=== PATIENT | female | born 1930 | race African-American/Black ===

== ENCOUNTER 2019-03-04 10:35 | Inpatient (IN) | payer MEDICARE ==
[2019-03-04 12:24] LABS: ABSOLUTE LYMPHOCYTES (AUTO) 0.9 10^3/uL (0.5-4.7); ABSOLUTE MONOCYTES (AUTO) 0.4 10^3/uL (0.1-1.4); ABSOLUTE NEUT (AUTO) 4.1 10^3/uL (1.7-8.2); BASOPHILS % (AUTO) 0.5 % (0-2); EOSINOPHILS % (AUTO) 0.4 % (0-6); HEMATOCRIT 44.9 % (36.0-47.0); HEMOGLOBIN 14.9 g/dL (12.0-15.5); LYMPHOCYTES % (AUTO) 17.2 % (13-45); MEAN CORPUSCULAR HEMOGLOBIN 29.3 pg (27.0-33.4); MEAN CORPUSCULAR HGB CONC 33.2 g/dL (32.0-36.0); MEAN CORPUSCULAR VOLUME 88 fl (80-97); MONOCYTES % (AUTO) 7.2 % (3-13); PLATELET COUNT 165 10^3/uL (150-450); RED BLOOD COUNT 5.09 10^6/uL (3.72-5.28); RED CELL DISTRIBUTION WIDTH 15.8 % (11.5-14.0); SEGMENTED NEUTROPHILS % (AUTO) 74.7 % (42-78); TOTAL CELLS COUNTED % (AUTO) 100 %; WHITE BLOOD COUNT 5.5 10^3/uL (4.0-10.5)
--- NOTE | 2019-03-04 12:40 | RADIOLOGY REPORT (SQ) ---
EXAM DESCRIPTION: CT HEAD WITHOUT COMPLETED DATE/TIME: 03/04/2019 12:20 pm REASON FOR STUDY: Syncope COMPARISON: None. TECHNIQUE: Axial images acquired through the brain without intravenous contrast. Images reviewed wi th bone, brain and subdural windows. Additional sagittal and coronal reconstructions were generated. Images stored on PACS. All CT scanners at this facility use dose modulation, iterative reconstruction, and/or weight based d osing when appropriate to reduce radiation dose to as low as reasonably achievable (ALARA). [facility]: Dose Right [facility]: CareDose [facility]: Dose Right [facility]: Teradose 4D [facility]: Conatix RADIATION DOSE: CT Rad equipment meets quality standard of care and radiation dose reduction techniq ues were employed. CTDIvol: 53.2 mGy. DLP: 1124 mGy-cm. mGy. LIMITATIONS: None. FINDINGS: VENTRICLES: Normal size and contour. CEREBRUM: No masses. No hemorrhage. No midline shift. No evidence for acute infarction. Normal gra y/white matter differentiation. No areas of low density in the white matter. CEREBELLUM: No masses. No hemorrhage. No alteration of density. No evidence for acute infarction. EXTRAAXIAL SPACES: No fluid collections. No masses. ORBITS AND GLOBE: No intra- or extraconal masses. Normal contour of globe without masses. CALVARIUM: No fracture. PARANASAL SINUSES: No fluid or mucosal thickening. SOFT TISSUES: No mass or hematoma. OTHER: No other significant finding. IMPRESSION: NORMAL BRAIN CT WITHOUT CONTRAST. EVIDENCE OF ACUTE STROKE: NO. COMMENT: Quality ID # [id number]: Final reports with documentation of one or more dose reduction techniques (e.g., Automated exposure control, adjustment of the mA and/or kV according to patient size, use of iterative reconstruction technique) TECHNICAL DOCUMENTATION: JOB ID: [id number] [employer]- All Rights Reserved Reading location - IP/workstation name: [email or web address]
--- NOTE | 2019-03-04 12:41 | RADIOLOGY REPORT (SQ) ---
EXAM DESCRIPTION: CHEST SINGLE VIEW COMPLETED DATE/TIME: 03/04/2019 12:08 pm REASON FOR STUDY: Syncope COMPARISON: 07/24/2011. EXAM PARAMETERS: NUMBER OF VIEWS: One view. TECHNIQUE: Single frontal radiographic view of the chest acquired. RADIATION DOSE: NA LIMITATIONS: None. FINDINGS: LUNGS AND PLEURA: No opacities, masses or pneumothorax. No pleural effusion. MEDIASTINUM AND HILAR STRUCTURES: No masses. Contour normal. HEART AND VASCULAR STRUCTURES: Heart normal in size. Normal vasculature. BONES: No acute findings. HARDWARE: None in the chest. OTHER: No other significant finding. IMPRESSION: NO ACUTE RADIOGRAPHIC FINDING IN THE CHEST. TECHNICAL DOCUMENTATION: JOB ID: [id number] [employer]- All Rights Reserved Reading location - IP/workstation name: [email or web address]
[2019-03-04 13:32] LABS: ALANINE AMINOTRANSFERASE 34 U/L (9-52); ALKALINE PHOSPHATASE 93 U/L (38-126); ANION GAP 11 (5-19); ASPARTATE AMINO TRANSFERASE 31 U/L (14-36); BILIRUBIN,DIRECT 0.2 mg/dL (0.0-0.4); BILIRUBIN,TOTAL 0.7 mg/dL (0.2-1.3); BLOOD UREA NITROGEN 21 mg/dL (7-20); CALCIUM 10.2 mg/dL (8.4-10.2); CARBON DIOXIDE 28 mmol/L (22-30); CHLORIDE 103 mmol/L (98-107); CREATINE KINASE 40 U/L (30-135); GLUCOSE 104 mg/dL (75-110); POTASSIUM 4.6 mmol/L (3.6-5.0); SODIUM 142.4 mmol/L (137-145); TOTAL PROTEIN 7.4 g/dL (6.3-8.2)
[2019-03-04 13:44] LABS: CREATINE KINASE MB 0.22 ng/mL (<4.55); TROPONIN I < 0.012 ng/mL
[2019-03-04 14:25] LABS: APPEARANCE,URINE SLIGHTLY-CLOUDY; BILIRUBIN,URINE NEGATIVE (NEGATIVE); COLOR,URINE YELLOW; GLUCOSE, URINE >=500 mg/dL (NEGATIVE); KETONES,URINE NEGATIVE (NEGATIVE); LEUKOCYTE ESTERASE,URINE NEGATIVE (NEGATIVE); NITRITE,URINE NEGATIVE (NEGATIVE); PROTEIN,URINE NEGATIVE (NEGATIVE); UROBILINOGEN,URINE NEGATIVE mg/dL (<2.0)
--- NOTE | 2019-03-04 14:25 | ER Document Report ---
Entered by LEANNE SWANSON SCRIBE 03/04/19 1159 Acting as scribe for:ULISSES VERDIN MD ED General - General Chief Complaint: Syncope Stated Complaint: SYNCOPE Time Seen by Provider: 03/04/19 11:38 Mode of Arrival: Medic Information source: Patient, Parent Notes: Patient is an 88 year old female with dementia, HTN, HLD, type 2 diabetes presents to the emergency department accompanied by family complaining of a syncopal episode just prior to arrival. Daughter states the patient was on the toilet when she stated "I don't feel good, I feel weak" and proceeded to "go limp" and unresponsive. Daughter states she caught the patient and placed her on the floor. Approximately 5 minutes later, daughter states the patient woke up, considerably groggy, and was able to consume a small amount of apple juice. She states EMS arrived shortly after. Patient states she does not remember much further stating she remembers being in the bathroom and then waking up in a car on her way to the emergency department. Patient states " I feel so much better". - Related Data Allergies/Adverse Reactions: morphine Allergy (Verified 03/04/19 11:27) Past Medical History - General Information source: Patient - Social History Smoking Status: Never Smoker Chew tobacco use (# tins/day): No Frequency of alcohol use: None Drug Abuse: None Family History: Reviewed & Not Pertinent Patient has suicidal ideation: No Patient has homicidal ideation: No - Past Medical History Cardiac Medical History: Reports: Hx Hypercholesterolemia, Hx Hypertension Endocrine Medical History: Reports: Hx Diabetes Mellitus Type 2 Past Surgical History: Reports: Hx Cholecystectomy, Hx Hysterectomy, Other - Lipoma resection from thigh. Review of Systems - Review of Systems Constitutional: See HPI, Weakness EENT: No symptoms reported Cardiovascular: See HPI, Syncope Respiratory: No symptoms reported Gastrointestinal: No symptoms reported Genitourinary: No symptoms reported Female Genitourinary: No symptoms reported Musculoskeletal: No symptoms reported Skin: No symptoms reported Hematologic/Lymphatic: No symptoms reported Neurological/Psychological: No symptoms reported -: Yes All other systems reviewed and negative Physical Exam - Vital signs Vitals: Resp 8 L 03/04/19 10:44 - Notes Notes: GENERAL: Alert, interacts well. No acute distress. HEAD: Normocephalic, atraumatic. EYES: Pupils equal, round, and reactive to light. Extraocular movements intact. ENT: Oral mucosa moist, tongue midline. NECK: Full range of motion. Supple. Trachea midline. No carotid bruits. LUNGS: Clear to auscultation bilaterally, no wheezes, rales, or rhonchi. No respiratory distress. HEART: 3/6 systolic murmur, can be heard in the neck bilaterally. Regular rate and rhythm. ABDOMEN: Soft, non-tender. Non-distended. Bowel sounds present in all 4 quadrant s. No guarding, rigidity, or rebound. EXTREMITIES: Moves all 4 extremities spontaneously. No edema, radial and dorsalis pedis pulses 2/4 bilaterally. No cyanosis. NEUROLOGICAL: Alert and oriented x3. Normal speech. PSYCH: Normal affect, normal mood. SKIN: Warm, dry, normal turgor. No rashes or lesions noted. Course - Re-evaluation Re-evalutation: 03/04/19 17:27 Patient does appear to feel better, but she has remained hypotensive, after 2 L of IV fluids her blood pressure is 95/49. Her lab work appears to show a hemoconcentration. She will be recommended for admission due to her persistent hypotension despite IV fluids. - Vital Signs Vital signs: Temp Pulse Resp BP Pulse Ox 97.4 F 15 95/49 L 100 03/04/19 11:30 03/04/19 17:01 03/04/19 17:01 03/04/19 17:01 - Laboratory Result Diagrams: 03/04/19 11:11 03/04/19 12:57 Laboratory results interpreted by me: 03/04/19 03/04/19 03/04/19 11:11 12:57 13:42 RDW 15.8 H BUN 21 H Est GFR (Non-Af Amer) 56 L Urine Glucose (UA) >=500 H Urine Ascorbic Acid 20 H - Diagnostic Test Radiology reviewed: Image reviewed, Reports reviewed - Chest x-ray is unremarkable. CT scan of the head is unremarkable. - EKG Interpretation by Me EKG shows normal: Sinus rhythm, [place], Intervals, QRS Complexes, ST-T Waves Rate: Normal - 67 Rhythm: NSR Voltage: Consistant with LVH - Anterior Q waves possibly due to LVH When compared to previous EKG there are: No significant change - No change compared to an EKG done in 2010 - Consults Dr. Vasquez Time consulted: 17:20 Consulted provider: will come to ER Critical Care Note - Critical Care Note Total time excluding time spent on procedures (mins): 40 Discharge - Discharge Clinical Impression: Syncope and collapse, Dehydration Hypotension Qualifiers: Hypotension type: unspecified hypotension type Qualified Code(s): I95.9 - Hypotension, unspecified Condition: Stable Disposition: ADMITTED INPATIENT Admitting Provider: Christina (Hospitalist) Unit Admitted: Telemetry Scribe Attestation: 03/04/19 14:58 I personally performed the services described in the documentation, reviewed and edited the documentation which was dictated to the scribe in my presence, and it accurately records my words and actions. I personally performed the services described in the documentation, reviewed and edited the documentation which was dictated to the scribe in my presence, and it accurately records my words and actions.
[2019-03-04] MEDS ORDERED: NORMAL SALINE 1000 ML 1,000 ML IV ONE ×3 (14:26→23:45)
--- NOTE | 2019-03-04 16:10 | EKG REPORT ---
SEVERITY:- ABNORMAL ECG - SINUS RHYTHM CONSIDER LEFT VENTRICULAR HYPERTROPHY ANTERIOR Q WAVES, POSSIBLY DUE TO LVH : Confirmed by: Kan Mak MD 04-Mar-2019 16:10:08
[2019-03-04] MEDS ORDERED: GLUCAGON,HUMAN RECOMB 1 MG INJ IM PRN (18:06)
[2019-03-04] MEDS ORDERED: DEXTROSE 40% GEL 15 GM TUBE PO PRN ×2 (18:06)
[2019-03-04] MEDS ORDERED: DEXTROSE 50%-WATER 25 GM/50 ML DISP.SYRIN IV PRN ×2 (18:06)
--- NOTE | 2019-03-04 18:41 | PDOC H&P ---
History of Present Illness Admission Date/PCP: 03/04/19 17:49 Patient complains of: SYNCOPE History of Present Illness: MITCHELL MARTINO is a 88 year old female with a PMH of dementia, hypertension-on 3 meds and DM 2 who was brought in due to syncope. Family in on bedside. Patient was apparently fine until this morning when she used the bathroom. Patient complained of dizziness and weakness. She was found by her daughter to be weak sitting on the toilet seat. They supported her body and she did not fell or sustained trauma but she did become unresponsive for a few seconds. They laid her on the floor and she started regaining consciousness. When EMS came, she was noted to be hypotensive and was also noted be orthostatic. She returned to her baseline mentation. In the ER, she was hypotensive at 90/45. She did get a liter of fluid bolus so far. Past Medical History Cardiac Medical History: Reports: Hyperlipidema, Hypertension Endocrine Medical History: Reports: Diabetes Mellitus Type 2 Past Surgical History Past Surgical History: Reports: Cholecystectomy, Hysterectomy, Other - Lipoma resection from thigh. Social History Smoking Status: Never Smoker Family History Family History: Reviewed & Not Pertinent Parental Family History Reviewed: Yes - no premature CAD Children Family History Reviewed: No Sibling(s) Family History Reviewed.: No Medication/Allergy Allergies/Adverse Reactions: morphine Allergy (Verified 03/04/19 11:27) Review of Systems All systems: reviewed and no additional remarkable complaints except as stated - as mentioned in HPI Physical Exam Vital Signs: Temp Pulse Resp BP Pulse Ox 97.4 F 15 95/49 L 100 03/04/19 11:30 03/04/19 17:01 03/04/19 17:01 03/04/19 17:01 Intake & Output 03/03/19 03/04/19 03/05/19 06:59 06:59 06:59 Intake Total 1000 Balance 1000 Weight 155 lb 5.05 oz General appearance: PRESENT: no acute distress, well-developed, well-nourished Head exam: PRESENT: atraumatic, normocephalic Eye exam: PRESENT: conjunctiva pink, EOMI, PERRLA. ABSENT: scleral icterus Ear exam: PRESENT: normal external ear exam Mouth exam: PRESENT: moist, tongue midline Neck exam: ABSENT: carotid bruit, JVD, lymphadenopathy, thyromegaly Respiratory exam: PRESENT: clear to auscultation yunior. ABSENT: rales, rhonchi, wheezes Cardiovascular exam: PRESENT: RRR, systolic murmur. ABSENT: rubs Vascular exam: PRESENT: normal capillary refill GI/Abdominal exam: PRESENT: normal bowel sounds, soft. ABSENT: distended, g uarding, mass, organolmegaly, rebound, tenderness Rectal exam: PRESENT: deferred Neurological exam: PRESENT: alert, awake, oriented to person, oriented to place, oriented to situation, CN II-XII grossly intact. ABSENT: motor sensory deficit Results Laboratory Results: 03/04/19 11:11 03/04/19 12:57 03/04/19 03/04/19 03/04/19 11:11 11:11 12:57 WBC 5.5 RBC 5.09 Hgb 14.9 Hct 44.9 MCV 88 MCH 29.3 MCHC 33.2 RDW 15.8 H Plt Count 165 Seg Neutrophils % 74.7 Lymphocytes % 17.2 Monocytes % 7.2 Eosinophils % 0.4 Basophils % 0.5 Absolute Neutrophils 4.1 Absolute Lymphocytes 0.9 Absolute Monocytes 0.4 Absolute Eosinophils 0.0 Absolute Basophils 0.0 Sodium Cancelled 142.4 Potassium Cancelled 4.6 Chloride Cancelled 103 Carbon Dioxide Cancelled 28 Anion Gap Cancelled 11 BUN Cancelled 21 H Creatinine Cancelled 0.94 Est GFR ( Amer) Cancelled > 60 Est GFR (Non-Af Amer) Cancelled 56 L Glucose Cancelled 104 Calcium Cancelled 10.2 Total Bilirubin Cancelled 0.7 AST Cancelled 31 ALT Cancelled 34 Alkaline Phosphatase Cancelled 93 Total Protein Cancelled 7.4 Albumin Cancelled 4.0 Urine Color Urine Appearance Urine pH Ur Specific [place] Urine Protein Urine Glucose (UA) Urine Ketones Urine Blood Urine Nitrite Ur Leukocyte Esterase Urine WBC (Auto) Urine RBC (Auto) 03/04/19 13:42 WBC RBC Hgb Hct MCV MCH MCHC RDW Plt Count Seg Neutrophils % Lymphocytes % Monocytes % Eosinophils % Basophils % Absolute Neutrophils Absolute Lymphocytes Absolute Monocytes Absolute Eosinophils Absolute Basophils Sodium Potassium Chloride Carbon Dioxide Anion Gap BUN Creatinine Est GFR ( Amer) Est GFR (Non-Af Amer) Glucose Calcium Total Bilirubin AST ALT Alkaline Phosphatase Total Protein Albumin Urine Color YELLOW Urine Appearance SLIGHTLY-CLOUDY Urine pH 6.0 Ur Specific [place] 1.020 Urine Protein NEGATIVE Urine Glucose (UA) >=500 H Urine Ketones NEGATIVE Urine Blood NEGATIVE Urine Nitrite NEGATIVE Ur Leukocyte Esterase NEGATIVE Urine WBC (Auto) 2 Urine RBC (Auto) 5 03/04/19 03/04/19 03/04/19 11:11 11:11 12:57 Creatine Kinase Cancelled 40 CK-MB (CK-2) Cancelled Troponin I Cancelled 03/04/19 12:57 Creatine Kinase CK-MB (CK-2) 0.22 Troponin I < 0.012 Impressions: Head CT 03/04/19 11:52 IMPRESSION: NORMAL BRAIN CT WITHOUT CONTRAST. EVIDENCE OF ACUTE STROKE: NO. Chest X-Ray 03/04/19 11:53 IMPRESSION: NO ACUTE RADIOGRAPHIC FINDING IN THE CHEST. Assessment and Plan - Diagnosis (1) Syncope Is this a current diagnosis for this admission?: Yes Plan: Secondary to orthostatic hypotension possible a combination of dehydration and medication-induced as patient is on amlodipine, atenolol and lisinopril. She has a pansystolic murmur (possible ). Family says this is a known murmur for several years but they are unsure what the valvulopathy is. Will order an echo. Continue IV fluids. Orthostatic vitals signs q6h. Hold off antihypertensives. (2) Dehydration Is this a current diagnosis for this admission?: Yes Plan: IV fluids as mentioned. (3) Dementia Is this a current diagnosis for this admission?: Yes (4) Hypotension Qualifiers: Hypotension type: unspecified hypotension type Qualified Code(s): I95.9 - Hypotension, unspecified Is this a current diagnosis for this admission?: Yes Plan: As per num 1. - Time Time Spent with patient: 25-34 minutes
--- NOTE | 2019-03-04 18:42 | ADVANCED CARE ---
- Diagnosis (1) Syncope Diagnosis Current: Yes (2) Dehydration Diagnosis Current: Yes (3) Dementia Diagnosis Current: Yes (4) Hypotension Diagnosis Current: Yes Resuscitation Status: Full Code Discussion: Discussed with patient's daughters including HERMELINDA Perez. Discussed her advanced age, having dementia and other comorbidities. They express patient is a Full Code and they clearly states they would want chest compressions, defibrillation or intubation if the need arises.
[2019-03-04] MEDS: INSULIN LISPRO 100 UNIT/ML 3 ML VIAL SUBCUT SCH (21:34)
[2019-03-04] MEDS: HEPARIN SOD (PORCINE) 5,000 UNIT/ML 1 ML SYRINGE SUBCUT SCH (21:34)
[2019-03-05] MEDS: NORMAL SALINE 1000 ML 1,000 ML IV PRN (05:10)
[2019-03-05] MEDS: INSULIN LISPRO 100 UNIT/ML 3 ML VIAL SUBCUT SCH ×4 (07:55→22:20)
--- NOTE | 2019-03-05 10:36 | RADIOLOGY REPORT (SQ) ---
EXAM DESCRIPTION: CAROTID DOPPLER COMPLETED DATE/TIME: 03/05/2019 10:19 am REASON FOR STUDY: syncope COMPARISON: CT BRAIN 03/04/2019 TECHNIQUE: Grayscale ultrasound, Doppler velocity and spectra, and color Doppler images acquired of the extra-cranial carotid and vertebral arteries. Images stored on PACS. LIMITATIONS: None. FINDINGS: RIGHT CAROTID CCA Velocities: Within normal limits. Right common carotid artery peak systolic velocity 0.52 m/s. ICA Velocities Peak systolic 0.63 m/s. End diastolic 0.09 m/s. Proximal ICA/CCA peak systolic ratio 1.3. Spectra normal. No significant plaque. LEFT CAROTID CCA Velocities: Within normal limits. Left common carotid artery peak systolic velocity 0.84 m/s ICA Velocities Peak systolic 0.81 m/s. End diastolic 0.08 m/s. Proximal ICA/CCA peak systolic ratio 1.3. Spectra normal. No significant plaque. VERTEBRAL ARTERIES: Antegrade flow. Normal waveforms. SUBCLAVIAN ARTERIES: Not evaluated OTHER: No other significant finding. IMPRESSION: NO HEMODYNAMICALLY SIGNIFICANT STENOSIS. COMMENT: Quality ID #[id number]: Velocity criteria are extrapolated from the diameter data as defined by t he Society of Radiologists in Ultrasound Consensus Conference. Radiology 2003: 229; 340-346. TECHNICAL DOCUMENTATION: JOB ID: [id number] [employer]- All Rights Reserved Reading location - IP/workstation name: [email or web address]
[2019-03-05] MEDS: HEPARIN SOD (PORCINE) 5,000 UNIT/ML 1 ML SYRINGE SUBCUT SCH ×3 (10:54→22:25)
--- NOTE | 2019-03-05 12:50 | PDOC PROGRESS REPORT ---
Subjective Progress Note for:: 03/05/19 Subjective:: This is a 88 year old female with a PMH of dementia, hypertension-on 3 meds and DM 2 who was brought in due to syncope. She returned to her baseline mentation. In the ER, she was hypotensive at 90/45 and was also found to be orthostatic. No acute event overnight. She is at her baseline mentation and is more conversant today. Orthostasis has significantly improved with IV fluids but her blood pressures are still running in the low side. Carotid and echo pending. Will continue to hold all her antihypertensives. Will continue to monitor blood pressures over the next 24 hrs and see is she still really needs to be on any antihypertensive at all upon discharge. Reason For Visit: SYNCOPE AND COLLAPSE, DEHYDRATION, HYPOTENSION Physical Exam Vital Signs: Temp Pulse Resp BP Pulse Ox 97.6 F 71 17 103/48 L 93 03/05/19 07:09 03/05/19 07:09 03/05/19 07:09 03/05/19 07:09 03/05/19 07:09 Intake & Output 03/04/19 03/05/19 03/06/19 06:59 06:59 06:59 Intake Total 3240 Balance 3240 Weight 150 lb 12.739 oz General appearance: PRESENT: no acute distress, well-developed, well-nourished Head exam: PRESENT: atraumatic, normocephalic Eye exam: PRESENT: conjunctiva pink, EOMI, PERRLA. ABSENT: scleral icterus Ear exam: PRESENT: normal external ear exam Mouth exam: PRESENT: moist, tongue midline Neck exam: ABSENT: carotid bruit, JVD, lymphadenopathy, thyromegaly Respiratory exam: PRESENT: clear to auscultation yunior. ABSENT: rales, rhonchi, wheezes Cardiovascular exam: PRESENT: RRR, systolic murmur. ABSENT: rubs Pulses: PRESENT: normal dorsalis pedis pul GI/Abdominal exam: PRESENT: normal bowel sounds, soft. ABSENT: distended, guarding, mass, organolmegaly, rebound, tenderness Rectal exam: PRESENT: deferred Neurological exam: PRESENT: alert, awake, oriented to person, oriented to place, CN II-XII grossly intact. ABSENT: motor sensory deficit Results Laboratory Results: 03/04/19 11:11 03/04/19 12:57 03/04/19 03/04/19 03/04/19 11:11 12:57 13:42 WBC 5.5 RBC 5.09 Hgb 14.9 Hct 44.9 MCV 88 MCH 29.3 MCHC 33.2 RDW 15.8 H Plt Count 165 Seg Neutrophils % 74.7 Lymphocytes % 17.2 Monocytes % 7.2 Eosinophils % 0.4 Basophils % 0.5 Absolute Neutrophils 4.1 Absolute Lymphocytes 0.9 Absolute Monocytes 0.4 Absolute Eosinophils 0.0 Absolute Basophils 0.0 Sodium 142.4 Potassium 4.6 Chloride 103 Carbon Dioxide 28 Anion Gap 11 BUN 21 H Creatinine 0.94 Est GFR ( Amer) > 60 Est GFR (Non-Af Amer) 56 L Glucose 104 Calcium 10.2 Total Bilirubin 0.7 AST 31 ALT 34 Alkaline Phosphatase 93 Total Protein 7.4 Albumin 4.0 Urine Color YELLOW Urine Appearance SLIGHTLY-CLOUDY Urine pH 6.0 Ur Specific [place] 1.020 Urine Protein NEGATIVE Urine Glucose (UA) >=500 H Urine Ketones NEGATIVE Urine Blood NEGATIVE Urine Nitrite NEGATIVE Ur Leukocyte Esterase NEGATIVE Urine WBC (Auto) 2 Urine RBC (Auto) 5 03/04/19 03/04/19 03/04/19 11:11 11:11 12:57 Creatine Kinase Cancelled 40 CK-MB (CK-2) Cancelled Troponin I Cancelled 03/04/19 12:57 Creatine Kinase CK-MB (CK-2) 0.22 Troponin I < 0.012 Impressions: Head CT 03/04/19 11:52 IMPRESSION: NORMAL BRAIN CT WITHOUT CONTRAST. EVIDENCE OF ACUTE STROKE: NO. Chest X-Ray 03/04/19 11:53 IMPRESSION: NO ACUTE RADIOGRAPHIC FINDING IN THE CHEST. Carotid Doppler Study 03/05/19 00:00 IMPRESSION: NO HEMODYNAMICALLY SIGNIFICANT STENOSIS. Assessment and Plan - Diagnosis (1) Syncope Is this a current diagnosis for this admission?: Yes Plan: 03/04: Secondary to orthostatic hypotension possible a combination of dehydration and medication-induced as patient is on amlodipine, atenolol and lisinopril. She has a pansystolic murmur (?possible ). Family says this is a known murmur for several years but they are unsure what the valvulopathy is. Will order an echo. Continue IV fluids. Orthostatic vitals signs q6h. Hold off antihypertensives. 03/05: Orthostasis has significantly improved with IV fluids but her blood pressures are still running in the low side. Carotid and echo pending. Will continue to hold all her antihypertensives. Continue IV fluids today. Will continue to monitor blood pressures over the next 24 hrs and see is she still really needs to be on any antihypertensive at all upon discharge. (2) Dehydration Is this a current diagnosis for this admission?: Yes Plan: Improving. As per number 2. (3) Dementia Is this a current diagnosis for this admission?: Yes Plan: She is at her baseline. She is well oriented except to time. (4) Hypotension Qualifiers: Hypotension type: unspecified hypotension type Qualified Code(s): I95.9 - Hypotension, unspecified Is this a current diagnosis for this admission?: Yes Plan: Improving. - Time Time Spent with patient: 25-34 minutes
--- NOTE | 2019-03-05 17:48 | XCELERA REPORT ---
[address] [address] Transthoracic Echocardiogram Report Name: MITCHELL MARTINO Age: 88 yrs Gender: Female : 1930 Patient Status: Inpatient Patient Location: [address] [place], [place] [id number] Study Date: 03/05/2019 09:04 AM Height: 67 in Weight: 155 lb BSA: 1.8 m2 Procedure: A two-dimensional transthoracic echocardiogram with color flow Doppler was performed. The study was technically limited with all images being suboptimal in quality. Reason For Study: syncope, ? murmur History: syncope /, murmur. Ordering Physician: NUBIA MONTELONGO Performed By: Rianna Renee Interpretation Summary The left ventricle is normal in size. There is normal left ventricular wall thickness. LV EF is 60% The left ventricular ejection fraction is within normal limits. Doppler measurements suggest normal left ventricular diastolic function The left ventricular wall motion is normal. There is no thrombus. Cannot assess ASD ,VSd,or PFO. The right ventricle is borderline dilated. The right ventricular systolic function is normal. The right atrium is mildly dilated. The left atrium is moderately dilated. There is no evidence of mitral valve prolapse. There is no vegetation seen on the mitral valve. There is no mitral valve stenosis. There is a moderate to severe amount of mitral regurgitation The MR jet is eccentric and postriorly directed. There is no aortic valvular vegetation. There is severe aortic stenosis ? critical.No LVOT obstruction.Mild AR. There is no tricuspid stenosis. There is a moderate amount of tricuspid regurgitation There is mild to moderate pulmonary hypertension by echo RVSP s 45 to 50 mm of Hg , with RA mean of 5 to 10. The pulmonic valve is not well visualized. There is no pulmonic valvular stenosis. There is a trace amount of pulmonic regurgitation The inferior vena cava appeared normal and decreased > 50% with respiration (RAP 5-10 mmHg) There is no pericardial effusion. MMode/2D Measurements & Calculations RVDd: 3.1 cm LVIDd: 5.6 cm FS: 26.3 % Ao root diam: 3.0 cm IVSd: 0.64 cm LVIDs: 4.1 cm EDV(Teich): 153.5 ml Ao root area: 6.8 cm2 LVPWd: 0.90 cm ESV(Teich): 75.3 ml EF(Teich): 50.9 % LVOT diam: 1.5 cm LVOT area: 1.8 cm2 Doppler Measurements & Calculations MV E max tasha: MV V2 max: MV dec slope: Ao V2 max: 129.2 cm/sec 136.0 cm/sec 887.5 cm/sec2 543.0 cm/sec MV A max tasha: MV max PG: MV dec time: Ao max P.1 cm/sec 7.4 mmHg 0.15 sec 118.1 mmHg MV E/A: 1.5 MV V2 mean: Ao V2 mean: 73.2 cm/sec 372.8 cm/sec MV mean PG: Ao mean P.5 mmHg 62.4 mmHg MV V2 VTI: 38.6 cm Ao V2 VTI: MVA(VTI): 0.69 cm2 135.3 cm VALENCIA(I,D): 0.20 cm2 VALENCIA(V,D): 0.23 cm2 AI max tasha: LV V1 max PG: SV(LVOT): 26.6 ml PA V2 max: 396.8 cm/sec 2.0 mmHg 67.8 cm/sec AI max P.0 mmHg LV V1 mean PG: PA max PG: AI dec slope: 0.83 mmHg 1.8 mmHg LV V1 max: 376.9 cm/sec2 70.3 cm/sec AI P1/2t: 308.3 msec LV V1 mean: 41.7 cm/sec LV V1 VTI: 14.9 cm LV dP/dt: 1280 mmHg/s PI end-d tasha: TR max tasha: 110.3 cm/sec 314.3 cm/sec TR max P.5 mmHg Left Ventricle The left ventricle is normal in size. There is normal left ventricular wall thickness. LV EF is 60%. The left ventricular ejection fraction is within normal limits. Doppler measurements suggest normal left ventricular diastolic function. The left ventricular wall motion is normal. There is no thrombus. Cannot assess ASD ,VSd,or PFO. Right Ventricle The right ventricle is borderline dilated. The right ventricular systolic function is normal. Atria The right atrium is mildly dilated. The left atrium is moderately dilated. Mitral Valve There is moderate mitral annular calcification. There is no evidence of mitral valve prolapse. There is no vegetation seen on the mitral valve. There is no mitral valve stenosis. There is a moderate to severe amount of mitral regurgitation. The MR jet is eccentric and postriorly directed. Aortic Valve There is no aortic valvular vegetation. There is severe aortic stenosis. ? critical.No LVOT obstruction.Mild AR. Tricuspid Valve There is no tricuspid stenosis. There is a moderate amount of tricuspid regurgitation. There is mild to moderate pulmonary hypertension by echo. RVSP s 45 to 50 mm of Hg , with RA mean of 5 to 10. Pulmonic Valve The pulmonic valve is not well visualized. There is no pulmonic valvular stenosis. There is a trace amount of pulmonic regurgitation. Great Vessels The aortic root is normal size. The inferior vena cava appeared normal and decreased > 50% with respiration (RAP 5-10 mmHg). Effusions There is no pericardial effusion. : NUBIA MONTELONGO > Obdulia Hong
[2019-03-06] MEDS: INSULIN LISPRO 100 UNIT/ML 3 ML VIAL SUBCUT SCH ×4 (07:43→21:48)
[2019-03-06] MEDS: NORMAL SALINE 1000 ML 1,000 ML IV PRN (08:42)
[2019-03-06] MEDS: HEPARIN SOD (PORCINE) 5,000 UNIT/ML 1 ML SYRINGE SUBCUT SCH ×2 (09:24→21:49)
--- NOTE | 2019-03-06 17:05 | PDOC PROGRESS REPORT ---
Subjective Progress Note for:: 03/06/19 Subjective:: This is a 88 year old female with a PMH of dementia, hypertension-on 3 meds and DM 2 who was brought in due to syncope. She returned to her baseline mentation. In the ER, she was hypotensive at 90/45 and was also found to be orthostatic. ECHOcardiogram reveals severe aortic stenosis. Discussed findings with Dr. Hong, who recommends transfer to tertiary facility for TAVR. This information was presented to the patient, who states she "wants the evening to think about it. " Discussed the option of leaving the hospital AGAINST MEDICAL ADVICE but counseled the patient regarding the risks of future syncopal episodes. Plan to remain inpatient overnight and discussed transfer versus leaving AMA in a.m. Reason For Visit: SYNCOPE, ORTHOSTATIC HYPOTENSION Physical Exam Vital Signs: Temp Pulse Resp BP Pulse Ox 97.9 F 90 16 152/76 H 99 03/06/19 15:37 03/06/19 15:37 03/06/19 15:37 03/06/19 15:37 03/06/19 15:37 Intake & Output 03/05/19 03/06/19 03/07/19 06:59 06:59 06:59 Intake Total 3240 1725 1000 Output Total 750 Balance 3240 975 1000 Weight 68.4 kg 69.7 kg General appearance: PRESENT: well-developed, well-nourished Eye exam: PRESENT: conjunctiva pink, PERRLA Mouth exam: PRESENT: moist, tongue midline Neck exam: PRESENT: full ROM. ABSENT: JVD Respiratory exam: PRESENT: clear to auscultation yunior, symmetrical, unlabored Cardiovascular exam: PRESENT: RRR, systolic murmur Pulses: PRESENT: normal radial pulses, normal dorsalis pedis pul Vascular exam: PRESENT: normal capillary refill GI/Abdominal exam: PRESENT: soft. ABSENT: distended, tenderness Rectal exam: PRESENT: deferred Extremities exam: PRESENT: full ROM. ABSENT: pedal edema Musculoskeletal exam: PRESENT: ambulatory, full ROM Neurological exam: PRESENT: alert, awake, oriented to person, oriented to place, oriented to time, oriented to situation Psychiatric exam: PRESENT: appropriate affect Skin exam: PRESENT: dry, intact, normal color Results Laboratory Results: 03/04/19 11:11 03/04/19 12:57 03/04/19 03/04/19 03/04/19 11:11 11:11 12:57 Creatine Kinase Cancelled 40 CK-MB (CK-2) Cancelled Troponin I Cancelled 03/04/19 12:57 Creatine Kinase CK-MB (CK-2) 0.22 Troponin I < 0.012 Impressions: Head CT 03/04/19 11:52 IMPRESSION: NORMAL BRAIN CT WITHOUT CONTRAST. EVIDENCE OF ACUTE STROKE: NO. Chest X-Ray 03/04/19 11:53 IMPRESSION: NO ACUTE RADIOGRAPHIC FINDING IN THE CHEST. Carotid Doppler Study 03/05/19 00:00 IMPRESSION: NO HEMODYNAMICALLY SIGNIFICANT STENOSIS. Status: Imported from PACS Assessment and Plan - Diagnosis (1) Syncope Qualifiers: Syncope type: unspecified Qualified Code(s): R55 - Syncope and collapse Is this a current diagnosis for this admission?: Yes Plan: Presented to ED following syncopal episode Initially (+) Orthostatics, has since resolved following IVF resuscitation Carotid Doppler negative Echocardiogram reveals severe aortic stenosis Blood pressure has remained normotensive over the last 24 hours, questionable whether she really needs to be on antihypertensives upon discharge Discussed echo findings with Dr. magallanes, he recommends TAVR at [facility]. This was discussed with patient and daughter who requested "the evening to think about it."Patient states "I am 89 years old, I do not know if I want to go through with cardiac surgery." (2) Dehydration Is this a current diagnosis for this admission?: Yes Plan: Resolved following IVF resuscitation (3) Dementia Is this a current diagnosis for this admission?: Yes Plan: Pleasantly confused at baseline Able to answer orientation questions but repeats same questions (regarding treatment plan) throughout the interview (4) Hypotension Qualifiers: Hypotension type: unspecified hypotension type Qualified Code(s): I95.9 - Hypotension, unspecified Is this a current diagnosis for this admission?: Yes Plan: Resolved following IVF resuscitation - Time Time Spent with patient: 15-24 minutes Medications reviewed and adjusted accordingly: Yes Anticipated discharge: Home - Inpatient Certification Based on my medical assessment, after consideration of the patient's comorbidities, presenting symptoms, or acuity I expect that the services needed warrant INPATIENT care.: Yes I certify that my determination is in accordance with my understanding of Medicare's requirements for reasonable and necessary INPATIENT services [42 CFR 412.3e].: Yes Medical Necessity: Need for Surgery, Risk of Complication if Not Cared For in Hospital
[2019-03-07] MEDS: NORMAL SALINE 1000 ML 1,000 ML IV PRN (05:25)
[2019-03-07] MEDS: INSULIN LISPRO 100 UNIT/ML 3 ML VIAL SUBCUT SCH ×4 (07:54→21:22)
[2019-03-07] MEDS: HEPARIN SOD (PORCINE) 5,000 UNIT/ML 1 ML SYRINGE SUBCUT SCH ×2 (09:10→21:21)
--- NOTE | 2019-03-07 21:48 | PDOC PROGRESS REPORT ---
Subjective Progress Note for:: 03/07/19 Subjective:: This is a 88 year old female with a PMH of dementia, hypertension-on 3 meds and DM 2 who was brought in due to syncope. She returned to her baseline mentation. In the ER, she was hypotensive at 90/45 and was also found to be orthostatic. ECHOcardiogram reveals severe aortic stenosis. Attempted to transfer patient to [facility] for TAVR but they refused, stating that (based on her symptoms) the patient can continue her pre-op TAVR workup as an outpatient. Discussed with Dr. Heart. Plan to change HTN medication regimen, will decrease dose of medications and spread over BID dosing (ex: lisinopril 10mg daily --> lisinopril 5 mg PO BID). Will keep patient at [facility] for 24 hours to monitor on new regimen. If tolerable, will d/c home tomorrow. Reason For Visit: SYNCOPE,AORTIC STENOSIS Physical Exam Vital Signs: Temp Pulse Resp BP Pulse Ox 98.4 F 80 14 162/71 H 100 03/07/19 15:00 03/07/19 19:00 03/07/19 15:00 03/07/19 15:00 03/07/19 15:00 Intake & Output 03/06/19 03/07/19 03/08/19 06:59 06:59 06:59 Intake Total 1725 2600 1080 Output Total 750 Balance 975 2600 1080 Weight 69.7 kg 71.3 kg General appearance: PRESENT: no acute distress, well-developed, well-nourished Head exam: PRESENT: atraumatic, normocephalic Eye exam: PRESENT: conjunctiva pink, EOMI, PERRLA. ABSENT: scleral icterus Ear exam: PRESENT: normal external ear exam Mouth exam: PRESENT: moist, tongue midline Teeth exam: PRESENT: poor dentation Neck exam: ABSENT: carotid bruit, JVD, lymphadenopathy, thyromegaly Respiratory exam: PRESENT: clear to auscultation yunior, symmetrical, unlabored. ABSENT: rales, rhonchi, wheezes Cardiovascular exam: PRESENT: RRR, systolic murmur. ABSENT: diastolic murmur, rubs Pulses: PRESENT: normal radial pulses, normal dorsalis pedis pul Vascular exam: PRESENT: normal capillary refill GI/Abdominal exam: PRESENT: normal bowel sounds, soft. ABSENT: distended, guarding, mass, organolmegaly, rebound, tenderness Rectal exam: PRESENT: deferred Extremities exam: PRESENT: full ROM. ABSENT: calf tenderness, clubbing, pedal edema Musculoskeletal exam: PRESENT: ambulatory, full ROM Neurological exam: PRESENT: alert, awake, oriented to person, oriented to place, oriented to time. ABSENT: oriented to situation - MILD CONFUSION Psychiatric exam: PRESENT: appropriate affect, normal mood Skin exam: PRESENT: dry, intact, warm. ABSENT: cyanosis, rash Results Laboratory Results: 03/04/19 11:11 03/04/19 12:57 03/04/19 03/04/19 03/04/19 11:11 11:11 12:57 Creatine Kinase Cancelled 40 CK-MB (CK-2) Cancelled Troponin I Cancelled 03/04/19 12:57 Creatine Kinase CK-MB (CK-2) 0.22 Troponin I < 0.012 Impressions: Head CT 03/04/19 11:52 IMPRESSION: NORMAL BRAIN CT WITHOUT CONTRAST. EVIDENCE OF ACUTE STROKE: NO. Chest X-Ray 03/04/19 11:53 IMPRESSION: NO ACUTE RADIOGRAPHIC FINDING IN THE CHEST. Carotid Doppler Study 03/05/19 00:00 IMPRESSION: NO HEMODYNAMICALLY SIGNIFICANT STENOSIS. Status: Imported from PACS Assessment and Plan - Diagnosis (1) Syncope Qualifiers: Syncope type: unspecified Qualified Code(s): R55 - Syncope and collapse Is this a current diagnosis for this admission?: Yes Plan: Presented to ED following syncopal episode Initially (+) Orthostatics, has since resolved following IVF resuscitation Carotid Doppler negative Echocardiogram reveals severe aortic stenosis Blood pressure has remained normotensive over the last 24 hours, questionable whether she really needs to be on antihypertensives upon discharge Discussed echo findings with Dr. magallanes, he recommends TAVR at [facility]. Will pursue outpatient pre-op workup per instructions from [facility] cardiac surgery group. (2) Dehydration Is this a current diagnosis for this admission?: Yes Plan: Resolved following IVF resuscitation (3) Dementia Is this a current diagnosis for this admission?: Yes Plan: Pleasantly confused at baseline Able to answer orientation questions but repeats same questions (regarding treatment plan) throughout the interview Continue home dose Namenda (4) Hypotension Qualifiers: Hypotension type: unspecified hypotension type Qualified Code(s): I95.9 - Hypotension, unspecified Is this a current diagnosis for this admission?: Yes Plan: Resolved following IVF resuscitation SBP today is 160s Resume home dose anti-HTN - Time Time Spent with patient: 15-24 minutes Medications reviewed and adjusted accordingly: Yes Anticipated discharge: Home, [facility] Within: within 24 hours - Inpatient Certification Based on my medical assessment, after consideration of the patient's comorbidities, presenting symptoms, or acuity I expect that the services needed warrant INPATIENT care.: Yes I certify that my determination is in accordance with my understanding of Medicare's requirements for reasonable and necessary INPATIENT services [42 CFR 412.3e].: Yes Medical Necessity: Risk of Complication if Not Cared For in Hospital
[2019-03-07] MEDS ORDERED: ATORVASTATIN CALCIUM 80 MG TABLET PO SCH (22:00)
[2019-03-07] MEDS ORDERED: TURMERIC ROOT EXTRACT 500 MG PO SCH (22:00)
[2019-03-07] MEDS ORDERED: CHOLECALCIFEROL (D3) 1,000 UNIT TABLET PO SCH (22:00)
[2019-03-07] MEDS: ATENOLOL 50 MG TABLET PO SCH (22:30)
[2019-03-07] MEDS: LISINOPRIL 5 MG TABLET PO SCH (22:31)
[2019-03-07] MEDS: AMLODIPINE BESYLATE 5 MG TABLET PO SCH (22:31)
--- NOTE | 2019-03-08 00:14 | PDOC CONSULTATION ---
Consultation-Blank Consultation: CARDIOLOGY CONSULTATION by Dr. Obdulia Hong on 03/07/2019. Patient seen at 12 noon on 03/07/2019. REASON FOR CONSULTATION: Patient with admitted with syncope, and has aortic stenosis by echocardiogram. Consult requesting provider: Ms. Talia Mathew NP. [[facility] physician group] HISTORY PRESENT ILLNESS: HISTORY obtained from the patient and mainly from the patient's daughter. Patient is a 88-year-old Afro[place]er female with known history of hypertension and diabetes mellitus who is went to the bathroom and while sitting on the toilet complained of severe dizziness and weakness.. She was found to daughter to be weak and diaphoretic and sitting on the toilet seat. She then had a brief period of unconsciousness with the eyes closed and fell into her daughter's arms. There was no injury. EMS was called. She was not hypoglycemic but was found to be hypotensive. She received fluids and her blood pressure came up. The patient was slightly confused for a few minutes after the episode. There is no complaints of chest pain, palpitations, or shortness of breath prior to or after the episode. There is no focal weaknesses of extremities, or facial droop. There is no seizures noted. She states that she has several of these episodes where she feels very weak but the daughter says this is the longest that the patient has become unconscious. The patient also complains of vertigo off and on. She has no exertional syncope. There is no history of exertional chest pain or exertional shortness of breath. She is found to have aortic stenosis of significance by echocardiogram and also by physical exam. At present the patient is asymptomatic. PAST MEDICAL HISTORY: Is positive for hypertension, diabetes mellitus, and hyperlipidemia. She also has a history of mild dementia, but the patient at present seems to be awake alert oriented x3,. As per the daughter the patient is able to take care of her daily activities independently. There is no history of asthma or COPD. No history of sleep apnea. No history of pulmonary embolism. She has no history of chronic kidney disease. She has had some episodes of near syncope and occasional brief syncope which seems to be more related to her blood pressure then due to her aortic stenosis. She also has episodes of vertigo. PAST SURGICAL HISTORY: Cholecystectomy, hysterectomy and lipoma resection from the thigh. SOCIAL HISTORY: The patient is never smoked. There is no history of EtOH abuse. FAMILY HISTORY: There is no history of coronary artery disease in the family. Her niece had permanent pacemaker placement. ALLERGIES: She is allergic to morphine. DISPOSITION: The patient is a full code. The patient's 2 daughters are her surrogate healthcare decision makers. REVIEW OF SYSTEMS: CONSTITUTIONAL: No fever chills or rigors. Episodes of weakness and, otherwise no generalized fatigue or weakness. HEAD: No history of headaches or head injury. EYES: No history of amblyopia diplopia. No history of amaurosis fugax. EARS: No history of tinnitus. History of vertigo present no history of recurrent ear infections. No history of hearing loss. NOSE: No history of nosebleeds. No history of hayfever. MOUTH: No history of altered taste sensation. No ulcers in the mouth. THROAT: No history of odynophagia or dysphagia. No recurrent sore throats. SKIN: No history of pruritus. No history of yellowish discoloration of the skin. No history of psoriasis. NECK: No history of neck pain or neck swelling. LUNGS: No history of asthma or COPD. No history of pulmonary embolism. No history of sleep apnea. No history of cough or wheezing. No symptoms of upper or lower respiratory tract infection. HEART: History of hypertension present no history of congestive heart failure. No history of coronary artery disease or MT. No history of rheumatic fever. It is not known if she knows that she has a aortic stenosis or not. Syncope as mentioned earlier which is the presenting complaint. This seems to be related to her blood pressure being low most likely secondary to hypotensive episode. Although the patient had no palpitations need to assess for any arrhythmias causing this hypotension. There is no history of congestive heart failure. Denies any leg edema PND orthopnea. There is no exertional chest pain or discomfort. There is no exertional shortness of breath. There is no exertional syncope. There is no history of rheumatic fever. GI: No history of GERD or peptic ulcer disease. No history of GI bleed. No history of fatty food intolerance. No history of cirrhosis or jaundice. No history of altered bowel movements. RENAL: No history of chronic kidney disease. No history of hematuria pyuria or dysuria. No symptoms a UTI. MUSCULAR skeletal: Denies arthritis or collagen vascular disease. ENDOCRINE: History of diabetes mellitus present there is no retinal neuropathy or nephropathy or neuropathy. There is no history of thyroid disease. No history of hirsutism. TRANSPORT CONDUCTOR: No history of TIA or CVA. No history of headaches migraines or seizures. History of episodic weak spells MOST LIKELY RELATED TO BLOOD PRESSURE DROPPING. Psychiatric: History of mild dementia, but still very functional. No history of anxiety or depression. No suicidal ideation. HEMATOLOGICAL: No history of anemia. No history of hematological disorders. No history of bleeding diathesis. No history of clotting disorders. No history of blood dyscrasias. VASCULAR: No history of calf or buttock claudication. No history of DVT. PHYSICAL EXAMINATION: The patient appears to be slightly younger than her stated age. She is well-groomed. She is in no acute distress. Selected Entries 03/07/19 11:12 Temperature 97.9 F Temperature Oral Source Pulse Rate 79 Blood Pressure 140/73 H Blood Pressure 95 Mean BP Location Left Arm BP Position Sitting O2 Sat by Pulse 97 Oximetry Oxygen Delivery Room Air Method HEAD: Is atraumatic normocephalic. EYES: Pupils equal round regular reactive to light accommodation. Extraocular movements are normal. There is no conjunctival pallor there is no scleral icterus. EARS: Tympanic membranes are intact. External auditory canals are clear. NOSE: There is no deviated nasal septum. There is no inflammation of the nasal mucous membrane. MOUTH: Mucous membranes of mouth are moist. Tongue is moist. There is no ulcers. There is no bleeding of the gums. THROAT: There is no redness of the oropharynx. There is no exudates. SKIN: There is no skin rashes. There is no skin lesions. There is no petechia or ecchymosis. NECK: Is supple.. There is no JVD. Carotids are equal. There is no bruits. There is transmitted aortic stenosis murmur heard over both carotids. There is mild carotid delay. There is no lymphadenopathy. There is no goiter. There is no accessory muscle respiration use. Trachea central. LUNGS: Is clear to auscultation percussion, without any rhonchi rales or wheezing. On palpation there is no chest wall tenderness. HEART: S1-S2 is heard. There is no S3 gallop. There is no S4 gallop. A2 is slightly diminished but still well heard. There is no thrill there is murmur of aortic stenosis 2 x 6 in the aortic area. There is no definite murmur of aortic regurgitation. There is mild mitral regurgitation murmur heard. There is no rub. There is no pericardial knock. ABDOMEN: Is soft. There is no hepatospleno megaly. Bowel sounds are well heard. There is no tender areas of masses. There is no hepatosplenomegaly. Extremities: Femorals are well felt. There is no femoral bruits. Leg pulses are well felt. There is no pedal edema. There is no DVT or cellulitis. There is no calf tenderness. TRANSPORT CONDUCTOR: The patient is conscious awake alert oriented x3 with no focal deficits. PSYCHIATRIC: The patient judgment insight today seem to be intact her affect today is normal. Current Medications Amlodipine Besylate (Norvasc 5 Mg Tablet) 5 mg PO Q12 [facility] Stop: 04/06/19 21:59 Last Admin: 03/07/19 22:31 Dose: 5 mg Documented by: Atenolol (Tenormin 50 Mg Tablet) 50 mg PO Q12 [facility] Stop: 04/06/19 21:59 Last Admin: 03/07/19 22:30 Dose: 50 mg Documented by: Atorvastatin Calcium (Lipitor 80 Mg Tablet) 80 mg PO QHS [facility] Stop: 04/06/19 21:59 Last Admin: 03/07/19 22:30 Dose: 80 mg Documented by: Cholecalciferol (Vitamin D3 1000 Unit Tablet) 5,000 unit PO QHS [facility] Stop: 04/06/19 21:59 Last Admin: 03/07/19 22:29 Dose: 5,000 unit Documented by: Dextrose (Dextrose Inj 50% Syringe (25 Gm/50 Ml)) 12.5 gm IV PRN PRN; Protocol PRN Reason: FOR BG 50-69 IN ALERT PATIENT Stop: 04/03/19 18:05 Dextrose (Dextrose Inj 50% Syringe (25 Gm/50 Ml)) 25 gm IV PRN PRN; Protocol PRN Reason: PER PROTOCOL Stop: 04/03/19 18:05 Glucagon (Glucagen Inj 1 Mg Vial) 1 mg IM PRN PRN; Protocol PRN Reason: Evaluate for BG < 70 Stop: 04/03/19 18:05 Glucose (Glutose 40% Gel 15 Gm Tube) 15 gm PO PRN PRN; Protocol PRN Reason: FOR BG 50-69 IN ALERT PATIENT Stop: 04/03/19 18:05 Glucose (Glutose 40% Gel 15 Gm Tube) 30 gm PO PRN PRN; Protocol PRN Reason: FOR BG < 50 IN ALERT PATIENT Stop: 04/03/19 18:05 Heparin Sodium (Porcine) (Heparin Inj 5,000 Units/Ml 1 Ml Syringe) 5,000 unit SUBCUT Q12 [facility] Stop: 04/03/19 21:59 Last Admin: 03/07/19 21:21 Dose: 5,000 unit Documented by: Sodium Chloride (Nacl 0.9% 1000 Ml Iv Soln) 1,000 mls @ 50 mls/hr IV CONTINUOUS PRN PRN Reason: THIS MED IS NOT "PRN" Stop: 04/03/19 18:05 Last Admin: 03/07/19 05:25 Dose: 50 mls/hr Documented by: Insulin Human Lispro (Humalog Insulin 100 Unit/1 Ml 3 Ml Vial) 0 - 12 unit SUBCUT ACHS [facility]; Protocol Stop: 04/03/19 21:59 Last Admin: 03/07/19 21:22 Dose: Not Given Documented by: Lisinopril (Prinivil 5 Mg Tablet) 5 mg PO Q12 [facility] Stop: 04/06/19 21:59 Last Admin: 03/07/19 22:31 Dose: 5 mg Documented by: Memantine (Namenda 10 Mg Tablet) 5 mg PO DAILY [facility] Stop: 04/07/19 09:59 Patient Own Medication (Dapagliflozin Propanediol [Farxiga]) 10 mg PO DAILY [facility] Stop: 04/07/19 09:59 Patient Own Medication (Mometasone Furoate [Elocon]) 1 applic TP BID [facility] Stop: 04/07/19 09:59 Patient Own Medication (Turmeric Root Extract [Turmeric Curcumin]) 500 mg PO QHS [facility] Stop: 04/06/19 21:59 Sodium Chloride (Saline Flush 2.5 Ml Monoject Prefil Syrin) 2.5 ml IV Q8 [facility] Stop: 04/03/19 21:59 Last Admin: 03/07/19 21:22 Dose: 2.5 ml Documented by: Discontinued Medications Sodium Chloride (Nacl 0.9% 1000 Ml Iv Soln) 1,000 mls @ 0 mls/hr IV BOLUS ONE Stop: 03/04/19 14:27 Last Infusion: 03/04/19 17:21 Dose: Infused Documented by: Sodium Chloride (Nacl 0.9% 1000 Ml Iv Soln) 1,000 mls @ 0 mls/hr IV BOLUS ONE Stop: 03/04/19 16:24 Last Infusion: 03/04/19 23:55 Dose: Infused Documented by: Sodium Chloride (Nacl 0.9% 1000 Ml Iv Soln) 1,000 mls @ 250 mls/hr IV X 1 BAG ONE Stop: 03/05/19 03:44 Last Infusion: 03/05/19 05:10 Dose: Infused Documented by: BARBARA MEDICATIONS: Amlodipine Besylate [Norvasc 10 mg Tablet] 10 mg PO DAILY 03/05/19 Atenolol [Tenormin 100 mg Tablet] 100 mg PO DAILY 03/05/19 Atorvastatin Calcium [Lipitor 80 mg Tablet] 80 mg PO QHS 03/05/19 Cholecalciferol (Vitamin D3) [Vitamin D3 5000 unit Capsule] 5,000 unit PO QHS 03/05/19 Dapagliflozin Propanediol [Farxiga] 10 mg PO DAILY 03/05/19 Lisinopril [Prinivil 10 mg Tablet] 10 mg PO DAILY 03/05/19 Memantine HCl [Namenda] 5 mg PO DAILY 03/05/19 Mometasone Furoate [Elocon] 1 applic TP BID 03/05/19 Pioglitazone HCl [Actos 15 mg Tablet] 7.5 mg PO BID 03/05/19 Turmeric Root Extract [Turmeric Curcumin] 500 mg PO QHS 03/05/[address] 03/04/19 11:52 IMPRESSION: NORMAL BRAIN CT WITHOUT CONTRAST. EVIDENCE OF ACUTE STROKE: NO. Chest X-Ray 03/04/19 11:53 IMPRESSION: NO ACUTE RADIOGRAPHIC FINDING IN THE CHEST. Carotid Doppler Study 03/05/19 00:00 IMPRESSION: NO HEMODYNAMICALLY SIGNIFICANT STENOSIS. ECHOCARDIOGRAM: Shows normal left ventricle systolic function. There is aortic stenosis with a mean gradient of 62 mmHg. The patient has severe aortic stenosis by echocardiogram. But visually the aortic valve is not as narrow as has been calculated. It appears to be severe, but the critical aortic stenosis is questionable. By examination also she seems to have severe but not critical aortic stenosis. There is mild aortic regurgitation by echocardiogram. IMPRESSION/RECOMMENDATION: 1. Syncope. From the description most likely this is secondary to hypotension. Rather than secondary to aortic stenosis. Hence would recommend dividing the patient's medication due to doses a day instead getting 1 dose a day. Hence recommend change amlodipine to 5 mg p.o. twice daily, metoprolol to 50 mg p.o. twice daily, and lisinopril to 10 mg p.o. twice daily. But would recommend a 30-day event monitor as an outpatient to make sure that the patient does not have any bradyarrhythmia or tachyarrhythmia causing the patient's symptomatology. 2. Aortic stenosis: Severe by examination but not critical. Also the patient has no symptoms of aortic stenosis or chest exertional syncope, exertional shortness of breath or chest pain or discomfort. But would recommend that the patient be seen as an outpatient and [facility], for a future T AVR, if she has no significant CAD. This has been discussed at length with the patient and the patient's daughter, who was present at the patient's bedside. 3. Hypertension: As recommended above would recommend changing the dose of medication to twice a day is a once a day. 4. Diabetes mellitus: Continue antidiabetic medication, and follow-up of blood sugars. 5. Mild dementia: In spite of this patient is very functional. 6. History of vertigo MEDICATIONS reviewed. Medication dosages is adjusted. Management plan discussed with attending physician on the case and Ms. Talia Mathew, nurse practitioner. Medical decision making is of high complexity. 60 minutes spent on this patient more than 50% of time spent in direct patient care. Will discuss with the [facility] cardiology and set the patient up for an outpatient clinic at the TAVR clinic.
[2019-03-08] MEDS: NORMAL SALINE 1000 ML 1,000 ML IV PRN (01:24)
[2019-03-08] MEDS ORDERED: MEMANTINE HCL 10 MG TABLET PO SCH (10:00)
[2019-03-08] MEDS ORDERED: (PENDING PHARMACY ID) (Dapagliflozin Propanediol [Farxiga] 10 MG) PO SCH (10:00)
[2019-03-08] MEDS ORDERED: (PENDING PHARMACY ID) (Memantine Hcl [Namenda] 5 MG) PO SCH (10:00)
[2019-03-08] MEDS ORDERED: MOMETASONE FUROATE TP SCH (10:00)
[2019-03-08] MEDS: INSULIN LISPRO 100 UNIT/ML 3 ML VIAL SUBCUT SCH ×2 (10:21→11:49)
[2019-03-08] MEDS: HEPARIN SOD (PORCINE) 5,000 UNIT/ML 1 ML SYRINGE SUBCUT SCH (10:31)
[2019-03-08] MEDS: ATENOLOL 50 MG TABLET PO SCH (10:32)
[2019-03-08] MEDS: AMLODIPINE BESYLATE 5 MG TABLET PO SCH (10:32)
[2019-03-08] MEDS: LISINOPRIL 5 MG TABLET PO SCH (10:33)
[2019-03-08 12:03] VITALS: BP 133/67
--- NOTE | 2019-03-16 14:33 | PDOC DISCHARGE SUMMARY ---
General - Admit/Disc Date/PCP Admission Date/Primary Care Provider: 03/06/19 10:00 Discharge Date: 03/08/19 - Discharge Diagnosis (1) Syncope Is this a current diagnosis for this admission?: Yes (2) Dehydration Is this a current diagnosis for this admission?: Yes (3) Dementia Is this a current diagnosis for this admission?: Yes (4) Hypotension Is this a current diagnosis for this admission?: Yes (5) Aortic stenosis Is this a current diagnosis for this admission?: Yes - Additional Information Resuscitation Status: Full Code Discharge Diet: As Tolerated Discharge Activity: Activity As Tolerated Prescriptions: Amlodipine Besylate [Norvasc 5 mg Tablet] 5 mg PO Q12 #60 tablet Atenolol [Tenormin 50 mg Tablet] 50 mg PO Q12 #60 tablet Lisinopril [Prinivil 5 mg Tablet] 5 mg PO Q12 #60 tablet Home Medications: Atorvastatin Calcium [Lipitor 80 mg Tablet] 80 mg PO QHS 03/05/19 Cholecalciferol (Vitamin D3) [Vitamin D3 5000 unit Capsule] 5,000 unit PO QHS 03/05/19 Dapagliflozin Propanediol [Farxiga] 10 mg PO DAILY 03/05/19 Memantine HCl [Namenda] 5 mg PO DAILY 03/05/19 Mometasone Furoate [Elocon] 1 applic TP BID 03/05/19 Pioglitazone HCl [Actos 15 mg Tablet] 7.5 mg PO BID 03/05/19 Turmeric Root Extract [Turmeric Curcumin] 500 mg PO QHS 03/05/19 Amlodipine Besylate [Norvasc 5 mg Tablet] 5 mg PO Q12 #60 tablet 03/08/19 Atenolol [Tenormin 50 mg Tablet] 50 mg PO Q12 #60 tablet 03/08/19 Lisinopril [Prinivil 5 mg Tablet] 5 mg PO Q12 #60 tablet 03/08/19 History of Present Illness History of Present Illness: MITCHELL MARTINO is a 88 year old female with a PMH of dementia, hypertension-on 3 meds and DM 2 who was brought in due to syncope. Family in on bedside. Patient was apparently fine until this morning when she used the bathroom. Patient complained of dizziness and weakness. She was found by her daughter to be weak sitting on the toilet seat. They supported her body and she did not fell or sustained trauma but she did become unresponsive for a few seconds. They laid her on the floor and she started regaining consciousness. When EMS came, she was noted to be hypotensive and was also noted be orthostatic. She returned to her baseline mentation. In the ER, she was hypotensive at 90/45. She did get a liter of fluid bolus so far. Hospital Course Hospital Course: This is a 88 year old female with a PMH of dementia, hypertension-on 3 meds and DM 2 who was brought in due to syncope. She returned to her baseline mentation. In the ER, she was hypotensive at 90/45 and was also found to be orthostatic. Head CT and carotid doppler were negative. Laboratory studies were relatively benign. ECHOcardiogram revealed severe aortic stenosis, which is likely the culprit and would explain her syncope. Attempted to transfer patient to [facility] for TAVR but they refused, stating that (based on her symptoms) the patient can continue her pre-op TAVR workup as an outpatient. Discussed with [facility] Cementer, Dr. Heart. Plan to change HTN medication regimen, will decrease dose of medications and spread over BID dosing (ex: lisinopril 10mg daily --> lisinopril 5 mg PO BID) to minimize her daytime HYPOtension. The patient was observed for an additional 24 hours on her new regimen, which she tolerated well. The patient was discharged with close follow up appointment with Dr. Heart as well as prescriptions for her antihypertensive medication regimen. Physical Exam Vital Signs: Temp Pulse Resp BP Pulse Ox 97.5 F 74 16 138/64 H 100 03/08/19 11:57 03/08/19 11:57 03/08/19 11:57 03/08/19 11:57 03/08/19 11:57 General appearance: PRESENT: well-developed, well-nourished Head exam: PRESENT: atraumatic Eye exam: PRESENT: conjunctiva pink, PERRLA Mouth exam: PRESENT: moist Neck exam: PRESENT: full ROM Respiratory exam: PRESENT: clear to auscultation yunior, symmetrical, unlabored Cardiovascular exam: PRESENT: irregular rhythm - sinus arrhythmia Pulses: PRESENT: normal radial pulses, normal dorsalis pedis pul Vascular exam: PRESENT: normal capillary refill GI/Abdominal exam: PRESENT: soft. ABSENT: distended, tenderness Rectal exam: PRESENT: deferred Extremities exam: PRESENT: full ROM Musculoskeletal exam: PRESENT: ambulatory, full ROM Neurological exam: PRESENT: alert, awake, oriented to person, oriented to place, oriented to time, oriented to situation, other - PLEASANTLY CONFUSED. ABLE TO ANSWER ORIENTATION QUESTIONS CORRECTLY. PERSEVERATES ON CERTAIN TOPICS/QUESTIONS DURING DAILY INTERVIEW Psychiatric exam: PRESENT: appropriate affect Skin exam: PRESENT: dry, intact, normal color Results Laboratory Results: 03/04/19 11:11 03/04/19 12:57 03/04/19 03/04/19 03/04/19 11:11 11:11 12:57 Creatine Kinase Cancelled 40 CK-MB (CK-2) Cancelled Troponin I Cancelled 03/04/19 12:57 Creatine Kinase CK-MB (CK-2) 0.22 Troponin I < 0.012 Impressions: Head CT 03/04/19 11:52 IMPRESSION: NORMAL BRAIN CT WITHOUT CONTRAST. EVIDENCE OF ACUTE STROKE: NO. Chest X-Ray 03/04/19 11:53 IMPRESSION: NO ACUTE RADIOGRAPHIC FINDING IN THE CHEST. Carotid Doppler Study 03/05/19 00:00 IMPRESSION: NO HEMODYNAMICALLY SIGNIFICANT STENOSIS. Status: Imported from PACS Qualifiers - * PATIENT BEING DISCHARGED WITH ANY OF THE FOLLOWING DIAGNOSIS: No Acute Heart Failure Is this a Heart Failure Patient?: No
== END 2019-03-08 13:45 | disposition home health service (06) | DRG 312 ==
LOC: ER 10:35 → INTOOBSV 17:49 → EH 17:49 → 4N 19:00 → OBSVTOIN 03-06 10:00
PROVIDERS: ADMIT Internal Medicine; ATTEND Internal Medicine
DX: R55 Syncope and collapse (principal); I95.1 Orthostatic hypotension; I10 Essential (primary) hypertension; E78.5 Hyperlipidemia, unspecified; E11.8 Type 2 diabetes mellitus with unspecified complications; E86.0 Dehydration; I35.0 Nonrheumatic aortic (valve) stenosis; F03.90 Unspecified dementia, unspecified severity, without behavioral disturbance, psychotic disturbance, mood disturbance, and anxiety
CPT/HCPCS: 36415; 70450; 71045; 80053; 81001; 82550; 82553; 82962; 83036; 84484; 85025; 93005; 93010; 93306; 93880; 96360; 96361; 99291; G0378; J1644; J3490; J7030

== ENCOUNTER 2019-08-29 15:50 | Inpatient (IN) | payer MEDICARE ==
[2019-08-29 16:30] LABS: ABSOLUTE LYMPHOCYTES (AUTO) 1.4 10^3/uL (0.5-4.7); ABSOLUTE MONOCYTES (AUTO) 1.1 10^3/uL (0.1-1.4); ABSOLUTE NEUT (AUTO) 5.2 10^3/uL (1.7-8.2); BASOPHILS % (AUTO) 0.6 % (0-2); EOSINOPHILS % (AUTO) 0.5 % (0-6); HEMATOCRIT 23.8 % (36.0-47.0); LYMPHOCYTES % (AUTO) 17.8 % (13-45); MEAN CORPUSCULAR HEMOGLOBIN 28.8 pg (27.0-33.4); MEAN CORPUSCULAR HGB CONC 32.7 g/dL (32.0-36.0); MEAN CORPUSCULAR VOLUME 88 fl (80-97); MONOCYTES % (AUTO) 13.8 % (3-13); PLATELET COUNT 389 10^3/uL (150-450); RED CELL DISTRIBUTION WIDTH 15.4 % (11.5-14.0); SEGMENTED NEUTROPHILS % (AUTO) 67.3 % (42-78); TOTAL CELLS COUNTED % (AUTO) 100 %; WHITE BLOOD COUNT 7.7 10^3/uL (4.0-10.5)
[2019-08-29 16:33] LABS: HEMOGLOBIN 7.8 g/dL (12.0-15.5)
[2019-08-29] MEDS ORDERED: NORMAL SALINE 250 ML IV PRN (16:35)
--- NOTE | 2019-08-29 16:38 | ER Document Report ---
ED General - General TRAVEL OUTSIDE OF THE [place] IN LAST 30 DAYS: No <HEATH VALDES - Last Filed: 08/30/19 02:25> <LASHAWNHETAL Duarte - Last Filed: 08/30/19 03:13> - General Chief Complaint: Syncope Stated Complaint: SYNCOPAL EPISODE Time Seen by Provider: 08/29/19 16:09 - HPI Notes: Patient is a 88-year-old female brought into the emergency department for evaluation. Her daughters are present and are the primary historians. Evidently, the patient had a doctor's appointment today. It was noted there that her blood pressure was low. Her blood pressure medications were changed further. This is not a new problem. Upon arriving home, the patient got up out of the car, walked approximately 10 feet, and then was too weak to carry on. She had a near syncopal episode. She did not injure herself, her daughter was present the whole time. The patient at this time states she does not really remember the episode, but this is not remarkable for her. She states she has no symptoms at this time. No chest pain, no difficulty breathing. She did take her regular medications this morning as prescribed. Of note, a few weeks ago the patient had an aortic valve replacement. Her hospital course was uneventful per daughter. (HEATH VALDES) - Related Data Allergies/Adverse Reactions: morphine Allergy (Verified 03/04/19 11:27) Past Medical History - General Information source: Patient, Relative - Social History Smoking Status: Never Smoker Family History: Reviewed & Not Pertinent - Past Medical History Cardiac Medical History: Reports: Hx Hypercholesterolemia, Hx Hypertension, Other - Aortic stenosis, status post replacement Endocrine Medical History: Reports: Hx Diabetes Mellitus Type 2 Renal/ Medical History: Denies: Hx Peritoneal Dialysis Psychiatric Medical History: Denies: Hx Depression Past Surgical History: Reports: Hx Cholecystectomy, Hx Hysterectomy, Other - Lipoma resection from thigh. <HEATH VALDES - Last Filed: 08/30/19 02:25> Review of Systems - Review of Systems Constitutional: See HPI EENT: No symptoms reported Cardiovascular: See HPI Respiratory: No symptoms reported Gastrointestinal: No symptoms reported Genitourinary: No symptoms reported Musculoskeletal: No symptoms reported Skin: No symptoms reported Neurological/Psychological: No symptoms reported <HEATH VALDES - Last Filed: 08/30/19 02:25> Physical Exam <KEISHAHEATH Palacios - Last Filed: 08/30/19 02:25> - Vital signs Vitals: Resp 14 08/29/19 16:06 - Notes Notes: This is a very pleasant 88-year-old female who appears her stated age, no acute distress. She is frail, lying comfortably in the bed. Vital signs reviewed, please refer to chart. Head is normocephalic, atraumatic. Pupils equal round, reactive to light. Neck is supple without meningismus. Heart is regular rate and rhythm with holosystolic murmur noted. Lungs are clear to auscultation bilaterally. Abdomen is soft, nontender, normoactive bowel sounds throughout. Extremities without cyanosis, clubbing. Posterior calves are nontender. Peripheral pulses are equal. Skin is warm and dry. Patient is awake, alert, disoriented to time but oriented to person and place. She is 3 out of 5 strengt h throughout upper and lower extremities. Rectal exam is performed with PCT present. Stool is brown, formed, heme positive. (HEATH VALDES) Course - Laboratory Result Diagrams: 08/29/19 16:00 08/29/19 16:00 - Diagnostic Test Radiology reviewed: Reports reviewed <HEATH VALDES - Last Filed: 08/30/19 02:25> - Laboratory Result Diagrams: 08/29/19 16:00 08/29/19 16:00 <HETAL HARDIN - Last Filed: 08/30/19 03:13> - Re-evaluation Re-evalutation: 08/29/19 16:37 Patient presents emergency department for evaluation. Patient placed on a monitor worker, given oxygen per nasal cannula. Laboratory investigations were obtained. Chest x-ray and orthostatic vital signs ordered as well. Her hemoglobin was found to be low. This is likely etiology for her near syncopal episode. Ordered to transfuse with 2 units of packed red blood cells was placed, will continue to monitor. 08/29/19 19:19 Patient and family are amenable to receiving the transfusions. She has had multiple syncopal episodes in the past. I do not suspect this is secondary to her aortic valve, but more likely secondary to her low hemoglobin and her low blood pressure. She is already had medication changes as ordered by Dr. Hong earlier today. After the patient receives her blood transfusion, she will be discharged. She is to follow-up closely with primary care. Return to the ED with worsening. 08/30/19 02:26 Upon further review, GI bleed is considered in the etiology of this patient's anemia. She is found to be heme positive. She did have a normal colonoscopy about 2 years ago. She is given Protonix IV and drip. Will contact medicine for admission. (HEATH VALDES) 08/30/19 02:32 Patient is given IV Protonix drip after a bolus and IV Pepcid and p.o. Carafate. Vital signs are stable. Discussion was undertaken with the hospitalist Dr. Kulkarni who agrees to admit the patient for further evaluation and care. Patient is already consented to blood transfusion. Discussion was again undertaken with the family who for some reason thought that the blood transfusion caused her to have blood in her bowel movement specimen. They also argued with me that her Plavix did not cause bleeding in any fashion. I did what I could try to explain this process to them and urged them that the patient needed admission for further evaluation of her bleeding. The family also did not understand that her bleeding in her stomach would cause blood to be in her bowel movement. 08/30/19 03:12 (HETAL HARDIN) - Vital Signs Vital signs: Temp Pulse Resp BP Pulse Ox 98 F 95 16 124/65 100 08/30/19 02:47 08/30/19 02:47 08/30/19 02:47 08/30/19 02:47 08/30/19 01:01 - Laboratory Laboratory results interpreted by me: 08/29/19 08/29/19 08/29/19 16:00 16:00 16:45 RBC 2.70 L Hgb 7.8 L Hct 23.8 L RDW 15.4 H [place] % (Auto) 13.8 H BUN 32 H Est GFR ( Amer) 55 L Est GFR (MDRD) Non-Af 46 L Glucose 193 H Urine Glucose (UA) Crossmatch See Detail 08/29/19 18:23 RBC Hgb Hct RDW [place] % (Auto) BUN Est GFR ( Amer) Est GFR (MDRD) Non-Af Glucose Urine Glucose (UA) >=500 H Crossmatch - Diagnostic Test Radiology results interpreted by me: 08/29/19 19:21 Chest X-Ray 08/29/19 16:38 IMPRESSION: Unchanged cardiomegaly. No acute pulmonary findings. (HEATH VALDES) - EKG Interpretation by Me Additional EKG results interpreted by me: 08/29/19 16:37 Sinus mechanism with a rate of 77 bpm. First-degree AV block. Left bundle branch block. This is a change from prior study. (HEATH VALDES) Discharge <HEATH VALDES - Last Filed: 08/30/19 02:25> - Discharge Admitting Provider: Shad (Hospitalist) Unit Admitted: IMCU <LASHAWNHETAL WEEMS - Last Filed: 08/30/19 03:13> - Discharge Clinical Impression: Syncope Qualifiers: Syncope type: unspecified Qualified Code(s): R55 - Syncope and collapse Hypotension Qualifiers: Hypotension type: hypotension due to drug Qualified Code(s): I95.2 - Hypotension due to drugs Anemia Qualifiers: Anemia type: other cause Other causes of anemia: acute posthemorrhagic Qualified Code(s): D62 - Acute posthemorrhagic anemia GI bleed Qualifiers: GI bleed type/associated pathology: unspecified gastrointestinal hemorrhage type Qualified Code(s): K92.2 - Gastrointestinal hemorrhage, unspecified Condition: Stable Disposition: ADMITTED INPATIENT Additional Instructions: Please follow through with blood pressure medication changes as recommended by her pest control service sales agent here. He should follow-up with primary care next week, have your blood counts rechecked. Return to the emergency department with worsening or concerning symptoms of any sort.
[2019-08-29 16:50] LABS: ALBUMIN 3.6 g/dL (3.5-5.0); ALKALINE PHOSPHATASE 65 U/L (38-126); ANION GAP 9 (5-19); ASPARTATE AMINO TRANSFERASE 22 U/L (14-36); BILIRUBIN,DIRECT 0.1 mg/dL (0.0-0.4); BILIRUBIN,TOTAL 0.2 mg/dL (0.2-1.3); BLOOD UREA NITROGEN 32 mg/dL (7-20); CALCIUM 9.5 mg/dL (8.4-10.2); CARBON DIOXIDE 27 mmol/L (22-30); CHLORIDE 102 mmol/L (98-107); CREATINE KINASE 30 U/L (30-135); GLUCOSE 193 mg/dL (75-110); POTASSIUM 4.8 mmol/L (3.6-5.0); TOTAL PROTEIN 6.5 g/dL (6.3-8.2)
[2019-08-29 17:00] LABS: CREATINE KINASE MB < 0.22 ng/mL (<4.55); TROPONIN I < 0.012 ng/mL
--- NOTE | 2019-08-29 17:26 | RADIOLOGY REPORT (SQ) ---
EXAM DESCRIPTION: CHEST SINGLE VIEW COMPLETED DATE/TIME: 08/29/2019 5:00 pm REASON FOR STUDY: Near-syncope COMPARISON: Chest radiographs 03/04/2019 EXAM PARAMETERS: NUMBER OF VIEWS: One view. TECHNIQUE: Single frontal radiographic view of the chest acquired. RADIATION DOSE: NA LIMITATIONS: None. FINDINGS: LUNGS AND PLEURA: No opacities, masses or pneumothorax. No pleural effusion. MEDIASTINUM AND HILAR STRUCTURES: No masses. Contour normal. HEART AND VASCULAR STRUCTURES: Cardiomegaly, unchanged. Normal vasculature. BONES: No acute findings. HARDWARE: None in the chest. OTHER: No other significant finding. IMPRESSION: Unchanged cardiomegaly. No acute pulmonary findings. TECHNICAL DOCUMENTATION: JOB ID: [id number] y prime- All Rights Reserved Reading location - IP/workstation name: [email or web address]
[2019-08-29 18:43] LABS: APPEARANCE,URINE CLEAR; BILIRUBIN,URINE NEGATIVE (NEGATIVE); COLOR,URINE YELLOW; GLUCOSE, URINE >=500 mg/dL (NEGATIVE); KETONES,URINE NEGATIVE (NEGATIVE); LEUKOCYTE ESTERASE,URINE NEGATIVE (NEGATIVE); NITRITE,URINE NEGATIVE (NEGATIVE); PROTEIN,URINE NEGATIVE (NEGATIVE); URINE SPECIFIC GRAVITY 1.021; UROBILINOGEN,URINE NEGATIVE mg/dL (<2.0)
--- NOTE | 2019-08-29 19:02 | EKG REPORT ---
SEVERITY:- ABNORMAL ECG - SINUS RHYTHM LEFT BUNDLE BRANCH BLOCK : Confirmed by: Obdulia Hong MD 29-Aug-2019 19:02:26
[2019-08-29] MEDS ORDERED: NORMAL SALINE 250 ML IV ONE (19:25)
[2019-08-30] MEDS ORDERED: PANTOPRAZOLE SODIUM 40 MG VIAL IV ONE (02:24)
[2019-08-30] MEDS ORDERED: PANTOPRAZOLE SODIUM 40 MG VIAL IV PRN (02:25)
[2019-08-30] MEDS ORDERED: SUCRALFATE 1 GM TABLET PO ONE (02:31)
[2019-08-30] MEDS ORDERED: FAMOTIDINE INJ/PF 20 MG/2 ML SDV IV ONE (02:31)
[2019-08-30] MEDS ORDERED: ACETAMINOPHEN 325 MG TABLET PO PRN (02:32)
[2019-08-30] MEDS ORDERED: ONDANSETRON HCL INJ/PF 4 MG/2 ML SDV IV PRN (02:32)
[2019-08-30 04:28] VITALS: BP 110/48
[2019-08-30] MEDS ORDERED: AMLODIPINE BESYLATE 10 MG TABLET PO SCH (10:00)
[2019-08-30] MEDS ORDERED: ATENOLOL 50 MG TABLET PO SCH (10:00)
== END 2019-08-30 04:46 | disposition home or self-care (01) | DRG 312 ==
LOC: ER 15:50 → 3W 08-30 02:32 → UNDOADMIN 08-30 03:17 → EH 08-30 03:17 → ER 08-30 04:46
PROVIDERS: ADMIT Internal Medicine; ATTEND Internal Medicine
PROC: 30233N1 Transfusion of Nonautologous Red Blood Cells into Peripheral Vein, Percutaneous Approach (ICD-10-PCS; principal; 2019-08-29)
DX: I95.2 Hypotension due to drugs (principal); D62 Acute posthemorrhagic anemia; K92.2 Gastrointestinal hemorrhage, unspecified; E78.00 Pure hypercholesterolemia, unspecified; E11.9 Type 2 diabetes mellitus without complications; I44.0 Atrioventricular block, first degree; I44.7 Left bundle-branch block, unspecified; T50.905A Adverse effect of unspecified drugs, medicaments and biological substances, initial encounter; Y92.9 Unspecified place or not applicable; Z95.2 Presence of prosthetic heart valve; Z88.6 Allergy status to analgesic agent
CPT/HCPCS: 36415; 36430; 71045; 80053; 81001; 82550; 82553; 84484; 85025; 86850; 86900; 86901; 86920; 93005; 93010; 96360; 96361; 99285; J7050; P9016